=== PATIENT | male | born 1955 | race African-American/Black ===

== ENCOUNTER 2016-09-07 09:21 | Emergency (ER) | payer MEDICAID ==
[~2016-09-07] VITALS: Ht 182.9 cm; Wt 98.0 kg
[~2016-09-07 09:21] MED LIST: HCTZ; LOSARTIN
[2016-09-07] MEDS ORDERED: LISI10TA5 PO (10:15)
[2016-09-07] MEDS ORDERED: FISH OIL (10:15)
[2016-09-07 10:32] VITALS: BP 142/98
[2016-09-07 10:53] LABS: BASOPHILS % 1.1 % (0.0-2.0); EOSINOPHILS % 1.8 % (0.0-5.0); HEMATOCRIT. 44.3 % (42.0-52.0); HEMOGLOBIN. 14.4 g/dL (14.0-18.0); LYMPHOCYTES % 22.2 % (20.0-50.0); MEAN CORPUSCULAR HEMOGLOBIN 27.4 pg (28.0-32.0); MEAN CORPUSCULAR HGB CONC 32.6 g/dL (31.0-37.0); MONOCYTES % 9.1 % (2.0-8.0); NEUTROPHILS % 65.8 % (40.0-76.0); PLATELET 216 x1000/uL (130-400); RED BLOOD CELL COUNT 5.27 mill/uL (4.7-6.1); RED CELL DISTRIBUTION WIDTH 13.7 % (11.6-14.6); WHITE BLOOD COUNT 8.6 x1000/uL (4.5-11.0)
[2016-09-07 11:01] LABS: PROTHROMBIN TIME 10.7 sec
[2016-09-07 11:06] LABS: ALBUMIN 3.7 g/dL (3.4-5.0); ANION GAP 13; CALCIUM 8.6 mg/dL (8.5-10.1); CARBON DIOXIDE 25 mEq/L (21-32); CHLORIDE 105 mEq/L (98-107); INDEX HEMOLYSI 1 (1-3); INDEX ICTERIC 1 (1-4); INDEX LIPEMIC 1 (1-3); LIPASE 224 IU/L (73-393); UREA NITROGEN BLOOD 18 mg/dL (7-21)
[2016-09-07 11:11] LABS: ALANINE AMINOTRANSFERASE 23 IU/L (13-61); eGFR > 60 mL/min (>60)
[2016-09-07 13:17] LABS: CLARITY URINE CLEAR (CLEAR); COLOR URINE YELLOW (YELLOW); GLUCOSE URINE NEGATIVE (NEGATIVE); KETONES URINE NEGATIVE (NEGATIVE); LEUKOCYTE ESTERASE URINE NEGATIVE (NEGATIVE); NITRITE URINE NEGATIVE (NEGATIVE); OCCULT BLOOD URINE NEGATIVE (NEGATIVE); PROTEIN URINE NEGATIVE (NEGATIVE); SPECIFIC GRAVITY URINE 1.014 (1.005-1.030); UROBILINOGEN URINE 0.2 E.U./dL (0.2-1.0)
== END 2016-09-07 13:48 | disposition home or self-care (01) ==
LOC: ER 10:56
DX: R10.11 Right upper quadrant pain (principal); R10.12 Left upper quadrant pain; I10 Essential (primary) hypertension; F17.210 Nicotine dependence, cigarettes, uncomplicated
CPT/HCPCS: 36415; 76705; 80053; 81003; 83690; 85025; 85610; 99285